=== PATIENT | female | born 1980 | race Caucasian/White ===

== ENCOUNTER 2019-01-26 21:42 | Emergency (ER) | payer SELFPAY ==
[~2019-01-26] VITALS: Ht 162.6 cm; Wt 70.3 kg
[2019-01-26] MEDS ORDERED: ASPIRIN 81 MG CHEW (CHILDREN'S ASA) PO ONE (22:00)
[2019-01-26 22:12] LABS: HEMATOCRIT 43 % (35-52); HEMOGLOBIN 14.9 G/DL (11.5-16.0); LYMPHOCYTES % (AUTO) 46 % (12-44); MEAN CORPUSCULAR HEMOGLOBIN 32 PG (25-34); MEAN CORPUSCULAR HGB CONC 34 G/DL (32-36); MEAN CORPUSCULAR VOLUME 93 FL (80-99); MEAN PLATELET VOLUME 10.7 FL (7.4-10.4); NEUTROPHILS % (AUTO) 47 % (42-75); PLATELET COUNT 202 10^3/uL (130-400); RED CELL DISTRIBUTION WIDTH 12.5 % (10.0-14.5); WHITE BLOOD COUNT 9.7 10^3/uL (4.3-11.0)
[2019-01-26 22:13] LABS: BASOPHILS # (AUTO) 0.1 10^3/uL (0.0-0.1); BASOPHILS % (AUTO) 1 % (0-10); EOSINOPHILS # (AUTO) 0.2 10^3/uL (0.0-0.3); EOSINOPHILS % (AUTO) 2 % (0-10); LYMPHOCYTES # (AUTO) 4.5 X 10^3 (1.0-4.0); MONOCYTES # (AUTO) 0.4 X 10^3 (0.0-1.0); MONOCYTES % (AUTO) 4 % (0-12); NEUTROPHILS # (AUTO) 4.5 X 10^3 (1.8-7.8)
[2019-01-26] MEDS ORDERED: LIDOCAINE 2% VISCOUS 15 ML UDC PO ONE (22:15)
[2019-01-26] MEDS ORDERED: ANTACID SUSP 30 ML UDC (MYLANTA) PO ONE (22:15)
[2019-01-26 22:16] LABS: PROTHROMBIN TIME PATIENT 13.2 SEC (12.2-14.7)
[2019-01-26 22:28] LABS: CHLORIDE 102 MMOL/L (98-107); POTASSIUM 3.5 MMOL/L (3.6-5.0); SODIUM 141 MMOL/L (135-145)
[2019-01-26 22:29] LABS: ALANINE AMINOTRANSFERASE 14 U/L (0-55); ALKALINE PHOSPHATASE 71 U/L (40-136); BILIRUBIN,TOTAL 0.2 MG/DL (0.1-1.0); BUN/CREATININE RATIO 10; CALCIUM 9.4 MG/DL (8.5-10.1); CARBON DIOXIDE 22 MMOL/L (21-32); CREATININE SERUM 0.79 MG/DL (0.60-1.30); GFR ESTIMATED > 60; GLUCOSE 105 MG/DL (70-105); MAGNESIUM 2.3 MG/DL (1.6-2.4); TOTAL PROTEIN 7.1 GM/DL (6.4-8.2)
[2019-01-26 22:30] LABS: ALBUMIN 4.3 GM/DL (3.2-4.5); LIPASE 24 U/L (8-78)
[2019-01-26 22:32] LABS: AMPHETAMINE SCREEN, URINE NEGATIVE (NEGATIVE); BARBITURATE SCREEN URINE NEGATIVE (NEGATIVE); BENZODIAZEPINES SCREEN URINE NEGATIVE (NEGATIVE); CANNABINOID SCREEN, URINE NEGATIVE (NEGATIVE); COCAINE SCREEN URINE NEGATIVE (NEGATIVE); METHADONE STAT NEGATIVE (NEGATIVE); METHAMPHETAMINE SCREEN URINE S NEGATIVE (NEGATIVE); OPIATE SCREEN URINE NEGATIVE (NEGATIVE); OXYCODONE STAT NEGATIVE (NEGATIVE); PROPOXYPHENE STAT NEGATIVE (NEGATIVE); TRICYCLIC ANTIDEPRESSANTS SCRE NEGATIVE (NEGATIVE)
--- NOTE | 2019-01-26 23:47 | ED Chest Pain ---
General Chief Complaint: Chest Pain Stated Complaint: SOB, CHEST PAIN Nursing Triage Note: Patient states that she has been having severe chest pressure and pain for about 1 week. Patient describes this as pressure going through to her back with difficulty breathing. Patient states that the last time she had pressure/pain was at about 1730 today. Patient does say that she had heartburn and that the pain worsened with palpation. Patient states she consumed a 12 pack of beer during the course of the day. Patient denies having pain and pressure at time of exam. Nursing Sepsis Screen: No Definite Risk Source: patient Exam Limitations: no limitations History of Present Illness Date Seen by Provider: Jan 26, 2019 Time Seen by Provider: 21:49 Initial Comments This 38-year-old woman presents to the emergency room with primary complaint of chest pain. She had an episode of chest pain starting around 17:30 and lasting for about 30 minutes. She described the pain as a heaviness. She had associated shortness of breath. Symptoms seem worse when she was going upstairs. She initially presumed it may be anxiety. She went home from work and proceeded to drink several beers. Pain had resolved prior to drinking. She had some associated dizziness, nausea, and hot flashes. Symptoms have all reso lved by the time of arrival. Patient reported symptoms are better with rest, bending over, and deep breathing. She denies any known history of heart or pulmonary problems. Pain is reproducible with palpation over the sternum and in the epigastrium. Allergies and Home Medications Allergies Coded Allergies: No Known Drug Allergies (Unverified , 01/26/19) Patient Home Medication List Home Medication List Reviewed: Yes Review of Systems Review of Systems Constitutional: no symptoms reported EENTM: No Symptoms Reported Respiratory: See HPI Cardiovascular: See HPI Gastrointestinal: See HPI Genitourinary: No Symptoms Reported Musculoskeletal: no symptoms reported Skin: no symptoms reported Psychiatric/Neurological: No Symptoms Reported Endocrine: No Symptoms Reported Hematologic/Lymphatic: No Symptoms Reported Past Aeyxsbj-Vlrewq-Tjkbqr Hx Past Med/Social Hx: Reviewed and Corrections made Patient Social History Alcohol Use: Occasionally Uses Alcohol Beverage of Choice: Beer Recreational Drug Use: No Smoking Status: Never a Smoker Recent Foreign Travel: No Contact w/Someone Who Travel: No Recent Infectious Disease Expo: No Recent Hopitalizations: No Physical Abuse: No Sexual Abuse: No Mistreated: No Fear: No Seasonal Allergies Seasonal Allergies: No Past Medical History Surgeries: Yes (Tubal ) Gallbladder Respiratory: No Cardiac: No Neurological: No Genitourinary: No Gastrointestinal: Yes Gastroesophageal Reflux Musculoskeletal: No Endocrine: No HEENT: No Cancer: No Psychosocial: Yes Depression Physical Exam Vital Signs Vital Signs - First Documented 01/26/19 21:46 Temp 98.0 Pulse 77 Resp 20 B/P (MAP) 120/91 (101) Pulse Ox 96 O2 Delivery Room Air Capillary Refill : Less Than 3 Seconds Height, Weight, BMI Height: 5'4.00" Weight: 155lbs. 0oz. 70.751167hs; BMI Method:Stated General Appearance: No Apparent Distress, WD/WN HEENT: PERRL/EOMI, Normal ENT Inspection Neck: Normal Inspection Respiratory: Lungs Clear, Normal Breath Sounds, No Accessory Muscle Use, No Respiratory Distress, Other (chest pain reproducible with palpation over the sternum) Cardiovascular: Regular Rate, Rhythm, No Edema, No Murmur Gastrointestinal: Normal Bowel Sounds, Soft, Tenderness (epigastrium) Extremity: Normal Inspection, Non Tender, No Calf Tenderness, No Pedal Edema, Other (negative Alyce) Neurologic/Psychiatric: Alert, Oriented x3, No Motor/Sensory Deficits, Normal 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, 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 Skin: Normal Color, Warm/Dry Progress/Results/Core Measures Results/Orders Lab Results Laboratory Tests Test 01/26/19 21:52 01/26/19 22:14 Range/Units White Blood Count 9.7 4.3-11.0 10^3/uL Red Blood Count 4.68 4.35-5.85 10^6/uL Hemoglobin 14.9 11.5-16.0 G/DL Hematocrit 43 35-52 % Mean Corpuscular Volume 93 80-99 FL Mean Corpuscular Hemoglobin 32 25-34 PG Mean Corpuscular Hemoglobin Concent 34 32-36 G/DL Red Cell Distribution Width 12.5 10.0-14.5 % Platelet Count 202 130-400 10^3/uL Mean Platelet Volume 10.7 H 7.4-10.4 FL Neutrophils (%) (Auto) 47 42-75 % Lymphocytes (%) (Auto) 46 H 12-44 % Monocytes (%) (Auto) 4 0-12 % Eosinophils (%) (Auto) 2 0-10 % Basophils (%) (Auto) 1 0-10 % Neutrophils # (Auto) 4.5 1.8-7.8 X 10^3 Lymphocytes # (Auto) 4.5 H 1.0-4.0 X 10^3 Monocytes # (Auto) 0.4 0.0-1.0 X 10^3 Eosinophils # (Auto) 0.2 0.0-0.3 10^3/uL Basophils # (Auto) 0.1 0.0-0.1 10^3/uL Prothrombin Time 13.2 12.2-14.7 SEC INR Comment 1.0 0.8-1.4 Activated Partial Thromboplast Time 24 24-35 SEC Sodium Level 141 135-145 MMOL/L Potassium Level 3.5 L 3.6-5.0 MMOL/L Chloride Level 102 98-107 MMOL/L Carbon Dioxide Level 22 21-32 MMOL/L Anion Gap 17 H 5-14 MMOL/L Blood Urea Nitrogen 8 7-18 MG/DL Creatinine 0.79 0.60-1.30 MG/DL Estimat Glomerular Filtration Rate > 60 BUN/Creatinine Ratio 10 Glucose Level 105 70-105 MG/DL Calcium Level 9.4 8.5-10.1 MG/DL Corrected Calcium 9.2 8.5-10.1 MG/DL Magnesium Level 2.3 1.6-2.4 MG/DL Total Bilirubin 0.2 0.1-1.0 MG/DL Aspartate Amino Transf (AST/SGOT) 15 5-34 U/L Alanine Aminotransferase (ALT/SGPT) 14 0-55 U/L Alkaline Phosphatase 71 40-136 U/L Myoglobin 22.1 10.0-92.0 NG/ML Troponin I < 0.30 <0.30 NG/ML Total Protein 7.1 6.4-8.2 GM/DL Albumin 4.3 3.2-4.5 GM/DL Lipase 24 8-78 U/L Serum Test, Qualitative NEGATIVE NEGATIVE Serum Alcohol 206 H <10 MG/DL Urine Opiates Screen NEGATIVE NEGATIVE Urine Oxycodone Screen NEGATIVE NEGATIVE Urine Methadone Screen NEGATIVE NEGATIVE Urine Propoxyphene Screen NEGATIVE NEGATIVE Urine Barbiturates Screen NEGATIVE NEGATIVE Ur Tricyclic Antidepressants Screen NEGATIVE NEGATIVE Urine Phencyclidine Screen NEGATIVE NEGATIVE Urine Amphetamines Screen NEGATIVE NEGATIVE Urine Methamphetamines Screen NEGATIVE NEGATIVE Urine Benzodiazepines Screen NEGATIVE NEGATIVE Urine Cocaine Screen NEGATIVE NEGATIVE Urine Cannabinoids Screen NEGATIVE NEGATIVE My Orders Orders - BRUEGGEMANN,MAAME T MD Cbc With Automated Diff (01/26/19 21:59) Magnesium (01/26/19 21:59) Ekg Tracing (01/26/19 21:59) Comprehensive Metabolic Panel (01/26/19 21:59) Myoglobin Serum (01/26/19 21:59) Protime With Inr (01/26/19 21:59) Partial Thromboplastin Time (01/26/19 21:59) O2 (01/26/19 21:59) Monitor-Rhythm Ecg Trace Only (01/26/19:59) Aspirin Chewable Tablet (Baby Aspirin Ch (01/26/19 22:00) Ed Iv/Invasive Line Start (01/26/19 21:59) Troponin I (01/26/19 21:59) Alcohol (01/26/19 21:59) Drug Screen Stat (Urine) (01/26/19 21:59) Hcg,Qualitative Serum (01/26/19 21:59) Lipase (01/26/19 21:59) Chest Pa/Lat (2 View) (01/26/19 21:59) Lidocaine 2% Viscous 15 Ml (Xylocaine Vi (01/26/19 22:15) Antacid Suspension (Mylanta Suspension (01/26/19 22:15) Medications Given in ED Current Medications Medications Dose Ordered Sig/Lei Route Start Time Stop Time Status Last Admin Dose Admin Al Hydrox/Mg Hydrox/Simethicone 30 ml ONCE ONCE PO 01/26/19 22:15 01/26/19 22:16 DC 01/26/19 22:17 30 ML Aspirin 324 mg ONCE ONCE PO 01/26/19 22:00 01/26/19 22:01 DC 01/26/19 22:17 324 MG Lidocaine HCl 15 ml ONCE ONCE PO 01/26/19 22:15 01/26/19 22:16 DC 01/26/19 22:17 15 ML Vital Signs/I&O 01/26/19 01/27/19 21:46 00:06 Temp 98.0 98.7 Pulse 77 73 Resp 20 18 B/P (MAP) 120/91 (101) 113/66 (82) Pulse Ox 96 94 O2 Delivery Room Air Room Air Blood Pressure Mean: 101 Progress Progress Note : Progress Note Workup was unremarkable. Patient had no further chest pain during her ER stay. She was dismissed home in stable condition. Troponin was drawn 4 hours after on set of chest pain. Repeat troponin was not necessary. Patient received a GI cocktail and was reexamined. She no longer had reproducible pain over the chest with palpation. 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 Initial ECG Impression Date: Jan 26, 2019 Initial ECG Impression Time: 21:50 Initial ECG Rate: 73 Initial ECG Rhythm: Normal Sinus Initial ECG Intervals: Normal Initial ECG Impression: Normal Comment Normal sinus rhythm with no ST elevation or depression. No abnormal intervals or axis deviation. Diagnostic Imaging Diagonstic Imaging: Xray Plain Films/CT/US/NM/MRI: chest Comments Chest x-ray viewed by me. Report not yet available. No acute abnormalities appreciated. Departure Impression Primary Impression: Chest pain Qualified Codes: R07.9 - Chest pain, unspecified Additional Impression: Upper abdominal pain Disposition: HOME, SELF-CARE Condition: Improved Departure-Patient Inst. Decision time for Depature: 23:45 Referrals: KARO RUEDA (PCP) Primary Care Physician Patient Instructions: Chest Pain (DC) Add. Discharge Instructions: Follow-up with your primary care provider soon as possible. Return to the emergency room if you have worsening symptoms. Your chest pain and upper abdominal pain may be caused by acid reflux or stomach irritation. I recommended taking an antacid medication such as omeprazole 20 mg daily or Pepcid (famotidine) 20 mg twice daily for the next couple of weeks. Avoid alcohol consumption as this may worsen the problem. All discharge instructions reviewed with patient and/or family. Voiced understanding. MAAME MILNER MD Jan 26, 2019 23:47
[2019-01-27 00:06] VITALS: BP 113/66
--- NOTE | 2019-01-27 05:48 | Diagnostic Imaging Report ---
EXAMINATION: PA and lateral chest at 1006 PM INDICATION: Chest pain There are no prior studies available for comparison. The heart size is within normal limits. The lungs are clear. There is no evidence for pneumonia failure or pleural effusion. The mediastinum is not widened. The osseous structures are intact. IMPRESSION: There is no evidence of an acute cardiopulmonary abnormality. Dictated by: Dictated on workstation # [id number]
== END 2019-01-26 23:58 | disposition home or self-care (01) ==
LOC: ER FS 21:43
DX: R07.89 Other chest pain (principal); R10.13 Epigastric pain; K21.9 Gastro-esophageal reflux disease without esophagitis; F32.9 Major depressive disorder, single episode, unspecified
CPT/HCPCS: 36415; 71046; 80053; 80306; 80320; 83690; 83735; 83874; 84484; 84703; 85025; 85610; 85730; 93005; 93041

== ENCOUNTER → 2019-07-23 | Outpatient (CLI) | payer SELFPAY ==
--- NOTE | 2019-07-23 13:20 | Diagnostic Imaging Report ---
INDICATION: Left lower quadrant pain. FINDINGS: The lung bases are clear. The bowel gas pattern is nonspecific. There is no free air. There are surgical clips in the right upper quadrant. IMPRESSION: Nonspecific bowel gas pattern. Dictated by: Dictated on workstation # [id number]
== END ==
LOC: RAD FS 13:03
PROVIDERS: ATTEND Nurse Practitioner Family
DX: R10.32 Left lower quadrant pain (principal)
CPT/HCPCS: 74018

== ENCOUNTER → 2020-01-30 | Outpatient (CLI) | payer MEDICAID | LOC: LAB FS 11:39 | PROVIDERS: ATTEND Obstetrics & Gynecology | DX: N91.2 Amenorrhea, unspecified (principal) | CPT/HCPCS: 36415; 84702 ==

== ENCOUNTER 2020-03-02 02:12 | Emergency (ER) | payer MEDICAID ==
[~2020-03-02] VITALS: Ht 162 cm; Wt 70.4 kg
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
[2020-03-02] MEDS ORDERED: TETANUS,DIPTH,PERTUSS P/F (BOOSTRIX) 0.5 ML VIAL IM ONE (03:00)
[2020-03-02 03:22] VITALS: BP 109/78
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
== END 2020-03-02 03:22 | disposition home or self-care (01) ==
LOC: EDUNIT# 02:12 → ER FS 02:16
DX: S20.212A Contusion of left front wall of thorax, initial encounter (principal); S10.81XA Abrasion of other specified part of neck, initial encounter; S30.810A Abrasion of lower back and pelvis, initial encounter; Z23 Encounter for immunization; Y00.XXXA Assault by blunt object, initial encounter
CPT/HCPCS: 71046; 73000; 90715

== ENCOUNTER → 2020-12-01 | Outpatient (CLI) | payer MEDICAID ==
--- NOTE | 2020-12-01 18:22 | Diagnostic Imaging Report ---
INDICATION: Fall with sacrococcygeal pain AP and lateral views of the sacrum and coccyx are obtained. There is no evidence of an acute fracture. There is transitional L5 vertebra with bilateral pseudoarthroses. Sacroiliac joints appear to be intact. IMPRESSION: No acute abnormality is detected. Dictated by: Dictated on workstation # [id number]
== END ==
LOC: RAD FS 17:55
PROVIDERS: ATTEND Nurse Practitioner Community Health
DX: M53.3 Sacrococcygeal disorders, not elsewhere classified (principal); R10.9 Unspecified abdominal pain
CPT/HCPCS: 72220

== ENCOUNTER 2022-07-06 12:03 | Emergency (ER) | payer MEDICAID ==
--- NOTE | 2022-07-06 12:19 | ED EENT ---
History of Present Illness General Chief Complaint: Dental Problems/Pain Stated Complaint: DENTAL PAIN Source: patient History of Present Illness Date Seen by Provider: Jul 06, 2022 Time Seen by Provider: 12:06 Initial Comments 41-year-old female presenting with complaints of severe dental pain especially on the right upper part of her mouth. She feels like there is swelling at times and the gums are inflamed. She has known chronic dental problems and widespread dental decay however the pain and gum swelling has been more severe in the last few days. She has been trying to take atnc-foz-nglfxuq medications of acetaminophen and ibuprofen as well [facility] She continued to have worsening pain and had to leave work today because of the pain. She denies having fever chills. She has had no drainage from her teeth. She does not have a routine dentist that she follows with. No acute trauma to make her right upper teeth started hurting in the last few days. Timing/Duration: abrupt, last week Severity: severe Location: dental Prearrival Treatment: over the counter meds Modifying Factors: Worse With Other (Eating makes the pain worse) Associated Symptoms: No change in hearing, No cough, No drooling, No ear drainage; facial pain/swelling (She feels like the right side of her face is swelling at times); No fever, No malaise, No nasal congestion/drainage, No poor fluid intake, No poor solids intake, No sinus infection, No sore throat; tooth pain; No voice change Allergies and Home Medications Allergies Coded Allergies: No Known Drug Allergies (Unverified , 01/26/19) Patient Home Medication List Home Medication List Reviewed: Yes Amoxicillin/Potassium Clav (Amox Tr-K Clv 875-125 mg Tab) 875 Mg-125 Mg Tablet, 1 EACH PO BID Prescribed by: AVERY ZHU on 07/06/22 1220 Chlorhexidine Gluconate (Peridex) 0.12 % Mouthwash, 15 ML MM BID Prescribed by: AVERY ZHU on 07/06/22 1220 Hydrocodone/Acetaminophen (Hydrocodone-Acetamin 5-325 mg) 5 Mg-325 Mg Tablet, 1 TAB PO Q6H PRN for PAIN-SEVERE (8-10) Prescribed by: AVERY ZHU on 07/06/22 1220 Ibuprofen (Ibuprofen) 800 Mg Tablet, 800 MG PO Q8H PRN for PAIN Prescribed by: AVERY ZHU on 07/06/22 1220 Review of Systems Review of Systems Constitutional: No chills, No fever Eyes: No Symptoms Reported Ears: No Symptoms Reported Nose: no symptoms reported Mouth: see HPI Throat: no symptoms reported Respiratory: no symptoms reported Cardiovascular: no symptoms reported Gastrointestinal: no symptoms reported Musculoskeletal: no symptoms reported Skin: no symptoms reported Neurological: No Symptoms Reported Past Pkugeti-Iyiybq-Xeqtru Hx Patient Social History Tobacco Use?: Yes Tobacco type used: Cigarettes Immunizations Up To Date Tetanus Booster (TDap): Unknown Seasonal Allergies Seasonal Allergies: No Past Medical History Surgeries: Yes (Tubal ) Gallbladder Respiratory: No Cardiac: No Neurological: No Genitourinary: No Gastrointestinal: Yes Gastroesophageal Reflux Musculoskeletal: No Endocrine: No HEENT: No Cancer: No Psychosocial: Yes Depression Integumentary: No Physical Exam Vital Signs Vital Signs - First Documented 07/06/22 12:03 Temp 35.7 Pulse 63 Resp 16 B/P (MAP) 151/95 (113) Pulse Ox 98 O2 Delivery Room Air Height, Weight, BMI Height: 5'4.00" Weight: 155lbs. 0oz. 70.769298of; 26.00 BMI Method:Stated General Appearance: WD/WN, no apparent distress Eyes: bilateral eye PERRL, bilateral eye EOMI Mouth/Throat: pharynx normal, dental tenderness, other (Widespread dental decay and gum swelling especially in the right maxillary area. She is missing several teeth.) Neck: non-tender, full range of motion, supple, normal inspection Cardiovascular: normal peripheral pulses, regular rate, rhythm Respiratory: chest non-tender, lungs clear, normal breath sounds Neurologic/Psychiatric: alert, oriented x 3 Skin: normal color, warm/dry Progress/Results/Core Measures Results/Orders Vital Signs/I&O 07/06/22 07/06/22 12:03 12:26 Temp 35.7 35.7 Pulse 63 63 Resp 16 16 B/P (MAP) 151/95 (113) 151/95 Pulse Ox 98 98 O2 Delivery Room Air Room Air Progress Progress Note : Progress Note Potential diagnosis of dental abscess, impacted tooth, sinusitis, sepsis. On physical exam she had several missing teeth as well as widespread dental decay. There is inflammation and gum swelling to the right maxillary area. No obvious pus or purulent drainage. Will start patient on antibiotics of amoxicillin/clavulanic acid. For severe pain will prescribe a few hydrocodone. I did review her controlled substance history on the prescription monitoring program site. She had no recent or active controlled substance prescriptions. Will also prescribe peridex mouthwash for gum disease and dental pain. Encouraged to continue with qklb-ybn-cwyxskw ibuprofen and acetaminophen if the pain is not severe enough to need the hydrocodone with acetaminophen. Also counseled to establish care with a dentist as soon as possible for more definitive care for her teeth. Departure Impression Primary Impression: Pain due to dental caries Additional Impression: Pain, dental Disposition: HOME, SELF-CARE Condition: Stable Departure-Patient Inst. Decision time for Depature: 12:16 Referrals: KARO RUEDA (PCP) Primary Care Physician [facility] (Family) Primary Care Physician Patient Instructions: Tooth Decay ED, Dental Pain ED Add. Discharge Instructions: Take the full course of antibiotics to help treat for infection and pain in the mouth with your teeth. For severe pain you could use the hydrocodone. This is a narcotic so take it with food as it can upset your stomach. You should not be driving while taking this medicine as it can impair your ability to drive. You can use the ibuprofen to help with pain and swelling. Use the chlorhexidine mouthwash to try and help with pain and infection. Follow-up with dental clinic as soon as possible for definitive treatment and care of your teeth All discharge instructions reviewed with patient and/or family. Voiced understanding. Scripts Hydrocodone/Acetaminophen (Hydrocodone-Acetamin 5-325 mg) 5 Mg-325 Mg Tablet 1 TAB PO Q6H PRN for PAIN-SEVERE (8-10) for 5 Days, #20 TAB 0 Refills Prov: AVERY ZHU MD 07/06/22 Chlorhexidine Gluconate (Peridex) 0.12 % Mouthwash 15 ML MM BID for dental pain for 10 Days, #473 ML 0 Refills 15 mL swish in mouth x 30 seconds then spit. Use twice a day for dental pain/infection. Prov: AVERY ZHU MD 07/06/22 Amoxicillin/Potassium Clav (Amox Tr-K Clv 875-125 mg Tab) 875 Mg-125 Mg Tablet 1 EACH PO BID for dental pain/infection for 7 Days, #14 TAB 0 Refills Prov: AVERY ZHU MD 07/06/22 Ibuprofen (Ibuprofen) 800 Mg Tablet 800 MG PO Q8H PRN for PAIN for 10 Days, #30 TAB 0 Refills Prov: AVERY ZHU MD 07/06/22 Work/School Note: Work Release Form Date Seen in the Emergency Department: Jul 06, 2022 Return to Work: Jul 07, 2022 Restrictions: No Restrictions AVERY ZHU MD Jul 06, 2022 12:19
[2022-07-06] MEDS ORDERED: ACHD5005 PO (12:20)
[2022-07-06] MEDS ORDERED: AMOX1TAB12 PO (12:20)
[2022-07-06] MEDS ORDERED: CHLO473M4 MM (12:20)
[2022-07-06] MEDS ORDERED: IBUP-1780 PO (12:20)
[2022-07-06 12:26] VITALS: BP 151/95
== END 2022-07-06 12:26 | disposition home or self-care (01) ==
LOC: EDUNIT# 12:03 → ER FS 12:04
DX: K02.9 Dental caries, unspecified (principal); F17.210 Nicotine dependence, cigarettes, uncomplicated; Z28.310 Unvaccinated for COVID-19
CPT/HCPCS: 99282

== ENCOUNTER 2022-07-16 06:02 | Emergency (ER) | payer MEDICAID ==
[~2022-07-16] VITALS: Ht 165 cm; Wt 172.0 kg
[~2022-07-16 06:02] MED LIST: ACHD5005 PO; AMOX1TAB12 PO; CHLO473M4 MM; IBUP-1780 PO
--- NOTE | 2022-07-16 06:18 | ED Upper Extremity ---
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 Been going on for several days. Denies any trauma. Otherwise denying any other acute complaints Allergies and Home Medications Allergies Coded Allergies: No Known Drug Allergies (Unverified , 01/26/19) Patient Home Medication List Home Medication List Reviewed: Yes Amoxicillin/Potassium Clav (Amox Tr-K Clv 875-125 mg Tab) 875 Mg-125 Mg Tablet, 1 EACH PO BID Prescribed by: AVERY ZHU on 07/06/22 1220 Chlorhexidine Gluconate (Peridex) 0.12 % Mouthwash, 15 ML MM BID Prescribed by: AVERY ZHU on 07/06/22 1220 Hydrocodone/Acetaminophen (Hydrocodone-Acetamin 5-325 mg) 5 Mg-325 Mg Tablet, 1 TAB PO Q6H PRN for PAIN-SEVERE (8-10) Prescribed by: AVERY ZHU on 07/06/22 1220 Ibuprofen (Ibuprofen) 800 Mg Tablet, 800 MG PO Q8H PRN for PAIN Prescribed by: AVERY ZHU on 07/06/22 1220 Review of Systems Constitutional: No fever EENTM: no symptoms reported Respiratory: no symptoms reported Cardiovascular: no symptoms reported Musculoskeletal: see HPI Past [id number] Hx Patient Social History Substance use?: No Immunizations Up To Date Tetanus Booster (TDap): Unknown Seasonal Allergies Seasonal Allergies: No Past Medical History Surgery/Hospitalization HX: LAP FLAVIO TUBAL LIGATION Surgeries: Yes (Tubal ) Gallbladder Respiratory: No Cardiac: No Neurological: No Genitourinary: No Gastrointestinal: Yes Gastroesophageal Reflux Musculoskeletal: No Endocrine: No HEENT: No Cancer: No Psychosocial: Yes Depression Integumentary: No Physical Exam Vital Signs Capillary Refill : Height, Weight, BMI Height: 5'4.00" Weight: 155lbs. 0oz. [id number]; 26.00 BMI Method:Stated General Appearance: WD/WN, no apparent distress HEENT: PERRL/EOMI, normal ENT inspection, pharynx normal Neck: non-tender, full range of motion, supple, normal inspection Cardiovascular: regular rate, rhythm, no edema, no murmur Respiratory: chest non-tender, lungs clear, normal breath sounds, no respiratory distress, no accessory muscle use Gastrointestinal: normal bowel sounds, non tender, soft; No distended, No guarding, No rebound Shoulder: normal inspection, non-tender, no evidence of injury, normal ROM Elbow/Forearm: normal inspection, non-tender, no evidence of injury, normal ROM, Right (Negative Ede's) Wrist: Yes normal inspection, Yes non-tender, Yes no evidence of injury, Yes normal ROM Hand: normal inspection, non-tender, no evidence of injury, normal ROM, Right (Positive Tinel tap and Phalen) Neurologic/Tendon: normal sensation, normal motor functions, normal tendon functions Neurologic/Psychiatric: no motor/sensory deficits, alert, normal mood/affect Skin: normal color, warm/dry Progress/Results/Core Measures Progress Progress Note : Progress Note 41-year-old female coming in due to right hand pain for last. ABCs were intact and vitals were stable presentation. Physical exam with a positive Tinel and Phalen that recreates her symptoms. She does have some decreased sensation in her thumb through middle finger when this occurs. Back to normal exam at this time. No bony tenderness and negative Ede's. X-ray not ordered because of lack of trauma. I will recommend a night splint, ibuprofen, follow-up with orthopedics as an outpatient. Departure Impression Primary Impression: Carpal tunnel syndrome of right wrist Disposition: 01 HOME, SELF-CARE Condition: Stable Departure-Patient Inst. Decision time for Depature: 06:17 Referrals: KARO RUEDA (PCP) Primary Care Physician [facility]/MELITA (Family) Primary Care Physician RUIZ CASTANEDA Patient Instructions: Carpal Tunnel Syndrome (DC) Add. Discharge Instructions: Your exam is consistent with carpal tunnel in the right wrist. I recommend buying a wrist splint to keep your hand in the same position and wear it all night, every night. You can wear the splint during the daytime to if you feel like it is helping. It may take several weeks for this to start feeling better. If its not feeling better in a couple weeks, call Ajith Castaneda who is numbers in this paperwork for follow-up. Take ibuprofen as needed for pain. Work/School Note: Work Release Form Date Seen in the Emergency Department: Jul 16, 2022 Return to Work: Jul 16, 2022 Restrictions: No Restrictions MARGARITA HUSAIN MD Jul 16, 2022 06:18
[2022-07-16 06:22] VITALS: BP 129/92
== END 2022-07-16 06:22 | disposition home or self-care (01) ==
LOC: EDUNIT# 06:02 → ER FS 06:03
DX: G56.01 Carpal tunnel syndrome, right upper limb (principal); Z28.310 Unvaccinated for COVID-19
CPT/HCPCS: 99281